=== PATIENT | female | born 1960 | race Two or more races ===

== ENCOUNTER 2018-04-11 09:14 | Emergency (ER) | payer OTHER ==
--- NOTE | 2018-04-11 10:33 | ER Document Report ---
ED General - General Chief Complaint: Abnormal Lab Results Stated Complaint: ABNORMAL LAB RESULTS Time Seen by Provider: 04/11/18 10:07 Notes: This is a 57-year-old pleasant female who presents emergency department request of her certified hyperbaric technician for low H&H. Denies any blood loss. History of chronic anemia which she thinks is due to pernicious anemia. Denies any chest pain. Denies any bright red blood in the stool or dark tarry colored stools. No recent hematemesis but did state that she vomited a couple weeks ago and it looked like there was some blood in it. Denies being a heavy alcohol user. Denies any other symptoms at this time. Has not take daily iron. [email or web address] voice dictation system was used in the transcribing of this medical document. There may be contextual errors in the risk control manager which are not actual representations of the patient's history of present illness, physical exam or medical treatment and decision making plans. TRAVEL OUTSIDE OF THE [place] IN LAST 30 DAYS: No - Related Data Allergies/Adverse Reactions: No Known Allergies Allergy (Verified 04/11/18 11:40) Past Medical History - General Information source: Patient - Social History Smoking Status: Never Smoker Frequency of alcohol use: None Drug Abuse: None Lives with: Family Family History: None Neurological Medical History: Reports: Hx Migraine Past Surgical History: Reports: Hx Section - x1 - Immunizations Hx Diphtheria, Pertussis, Tetanus Vaccination: Yes Review of Systems - Review of Systems Constitutional: No symptoms reported EENT: No symptoms reported Cardiovascular: No symptoms reported Respiratory: No symptoms reported Gastrointestinal: No symptoms reported Genitourinary: No symptoms reported Female Genitourinary: No symptoms reported Musculoskeletal: No symptoms reported Skin: No symptoms reported Hematologic/Lymphatic: No symptoms reported Neurological/Psychological: No symptoms reported Physical Exam - Vital signs Vitals: Temp Pulse Resp BP Pulse Ox 99.2 F 79 12 145/67 H 100 04/11/18 09:20 04/11/18 09:20 04/11/18 09:20 04/11/18 09:20 04/11/18 09:20 Interpretation: Normal - General General appearance: Appears well, Alert - HEENT Head: Normocephalic, Atraumatic Eyes: Normal Pupils: PERRL - Respiratory Respiratory status: No respiratory distress Chest status: Nontender Breath sounds: Normal Chest palpation: Normal - Cardiovascular Rhythm: Regular Heart sounds: Normal auscultation Murmur: No - Abdominal Inspection: Normal Distension: No distension Bowel sounds: Normal Tenderness: Nontender Organomegaly: No organomegaly - Rectal Stool: Heme negative Hemorrhoids: None - Back Back: Normal, Nontender - Extremities General upper extremity: Normal inspection, Nontender, Normal color, Normal ROM , Normal temperature General lower extremity: Normal inspection, Nontender, Normal color, Normal ROM , Normal temperature, Normal weight bearing. No: Jose Angel's sign - Neurological Neuro grossly intact: Yes Cognition: Normal Orientation: AAOx4 [place] Coma Scale Eye Opening: Spontaneous [place] Coma Scale Verbal: Oriented [place] Coma Scale Motor: Obeys Commands [place] Coma Scale Total: 15 Speech: Normal Motor strength normal: LUE, RUE, LLE, RLE Sensory: Normal - Psychological Associated symptoms: Normal affect, Normal mood - Skin Skin Temperature: Warm Skin Moisture: Dry Skin Color: Pale Course - Re-evaluation Re-evalutation: 04/11/18 14:33 Laboratory 04/11/18 04/11/18 04/11/18 10:16 10:16 10:16 WBC 3.4 L RBC 1.47 L Hgb 5.7 L Hct 16.2 L MCV 110 H MCH 39.0 H MCHC 35.4 RDW Plt Count 125 L Seg Neutrophils % 45.5 Lymphocytes % 45.3 H Monocytes % 6.7 Eosinophils % 2.2 Basophils % 0.3 Absolute Neutrophils 1.6 L Absolute Lymphocytes 1.5 Absolute Monocytes 0.2 Absolute Eosinophils 0.1 Absolute Basophils 0.0 Platelet Comment DECREASED Polychromasia SLIGHT Poikilocytosis 2+ Anisocytosis 4+ Macrocytosis 2+ Tear Drop Cells 2+ Schistocytes SLIGHT Retic Count (auto) Absolute Retic Sodium 144.5 Potassium 3.2 L Chloride 104 Carbon Dioxide 30 Anion Gap 11 BUN 11 Creatinine 0.58 Est GFR ( Amer) > 60 Est GFR (Non-Af Amer) > 60 Glucose 96 Calcium 8.9 Iron TIBC % Saturation Ferritin Total Bilirubin 1.3 Direct Bilirubin 0.7 H Neonat Total Bilirubin Not Reportable Neonat Direct Bilirubin Not Reportable Neonat Indirect Bili Not Reportable AST 175 H ALT 70 H Alkaline Phosphatase 48 Total Protein 7.3 Albumin 4.3 Vitamin B12 Folate Stool Occult Blood Blood Type O POSITIVE Antibody Screen NEGATIVE Crossmatch See Detail 04/11/18 04/11/1804/11/18 10:16 10:16 11:15 WBC RBC Hgb Hct MCV MCH MCHC RDW Plt Count Seg Neutrophils % Lymphocytes % Monocytes % Eosinophils % Basophils % Absolute Neutrophils Absolute Lymphocytes Absolute Monocytes Absolute Eosinophils Absolute Basophils Platelet Comment Polychromasia Poikilocytosis Anisocytosis Macrocytosis Tear Drop Cells Schistocytes Retic Count (auto) 1.16 Absolute Retic 0.017 L Sodium Potassium Chloride Carbon Dioxide Anion Gap BUN Creatinine Est GFR ( Amer) Est GFR (Non-Af Amer) Glucose Calcium Iron Cancelled TIBC Cancelled % Saturation Cancelled Ferritin Cancelled Total Bilirubin Direct Bilirubin Neonat Total Bilirubin Neonat Direct Bilirubin Neonat Indirect Bili AST ALT Alkaline Phosphatase Total Protein Albumin Vitamin B12 Cancelled Folate Cancelled Stool Occult Blood NEGATIVE Blood Type Antibody Screen Crossmatch Hemoccult negative. Hemoglobin is significantly low. Will transfuse at this time. MCV is slightly elevated likely due to pernicious anemia. Will give a shot of B12, thiamine and folate, transfuse with 2 units of PRBCs and DC. Patient does have hematology follow-up. Attempted to get patient seen at transfusion center for transfusion however they were going to be closing soon and did not feel comfortable starting her transfusion there. I do not feel patient needs to be admitted for this so we will keep in the emergency department extended period of time while she gets transfusion and then DC from here - Vital Signs Vital signs: Temp Pulse Resp BP Pulse Ox 98.1 F 79 14 136/74 H 100 04/11/18 14:00 04/11/18 09:20 04/11/18 14:04 04/11/18 14:04 04/11/18 13:34 - Laboratory Result Diagrams: 04/11/18 10:16 04/11/18 10:16 Laboratory results interpreted by me: 04/11/18 04/11/18 04/11/18 10:16 10:16 10:16 WBC 3.4 L RBC 1.47 L Hgb 5.7 L Hct 16.2 L MCV 110 H MCH 39.0 H Plt Count 125 L Lymphocytes % 45.3 H Absolute Neutrophils 1.6 L Absolute Retic Potassium 3.2 L Direct Bilirubin 0.7 H AST 175 H ALT 70 H Crossmatch See Detail 04/11/18 10:16 WBC RBC Hgb Hct MCV MCH Plt Count Lymphocytes % Absolute Neutrophils Absolute Retic 0.017 L Potassium Direct Bilirubin AST ALT Crossmatch Discharge - Discharge Clinical Impression: Pernicious anemia Condition: Good Disposition: HOME, SELF-CARE Instructions: Anemia ([facility]) Additional Instructions: It is very important that you follow-up with your certified hyperbaric technician as your blood counts were extremely low today and required blood transfusion. If you begin to develop any chest pain, shortness of breath, swelling or other issues please return Referrals: RAIN DANIELS MD [Primary Care Provider] - Follow up as needed HEATHER COLLADO MD [ACTIVE STAFF] - Follow up in 1 week
[2018-04-11 10:56] LABS: ABSOLUTE EOSINOPHILS # (AUTO) 0.1 10^3/uL (0.0-0.6); ABSOLUTE LYMPHOCYTES (AUTO) 1.5 10^3/uL (0.5-4.7); ABSOLUTE MONOCYTES (AUTO) 0.2 10^3/uL (0.1-1.4); ABSOLUTE NEUT (AUTO) 1.6 10^3/uL (1.7-8.2); BASOPHILS % (AUTO) 0.3 % (0-2); EOSINOPHILS % (AUTO) 2.2 % (0-6); HEMATOCRIT 16.2 % (36.0-47.0); LYMPHOCYTES % (AUTO) 45.3 % (13-45); MEAN CORPUSCULAR HGB CONC 35.4 g/dL (32.0-36.0); MEAN CORPUSCULAR VOLUME 110 fl (80-97); MONOCYTES % (AUTO) 6.7 % (3-13); PLATELET COUNT 125 10^3/uL (150-450); RED BLOOD COUNT 1.47 10^6/uL (3.72-5.28); SEGMENTED NEUTROPHILS % (AUTO) 45.5 % (42-78); TOTAL CELLS COUNTED % (AUTO) 100 %; WHITE BLOOD COUNT 3.4 10^3/uL (4.0-10.5)
[2018-04-11 11:06] LABS: ALANINE AMINOTRANSFERASE 70 U/L (9-52); ALBUMIN 4.3 g/dL (3.5-5.0); ALKALINE PHOSPHATASE 48 U/L (38-126); ANION GAP 11 (5-19); ASPARTATE AMINO TRANSFERASE 175 U/L (14-36); BILIRUBIN,DIRECT 0.7 mg/dL (0.0-0.4); BILIRUBIN,TOTAL 1.3 mg/dL (0.2-1.3); BLOOD UREA NITROGEN 11 mg/dL (7-20); CALCIUM 8.9 mg/dL (8.4-10.2); CARBON DIOXIDE 30 mmol/L (22-30); CHLORIDE 104 mmol/L (98-107); GLUCOSE 96 mg/dL (75-110); POTASSIUM 3.2 mmol/L (3.6-5.0); SODIUM 144.5 mmol/L (137-145); TOTAL PROTEIN 7.3 g/dL (6.3-8.2)
[2018-04-11 11:34] LABS: HEMOGLOBIN 5.7 g/dL (12.0-15.5)
[2018-04-11 11:38] LABS: ANISOCYTOSIS 4+; POIKILOCYTOSIS 2+
[2018-04-11 11:39] LABS: PLATELET COMMENT DECREASED; POLYCHROMASIA SLIGHT; SCHISTOCYTES SLIGHT; TEAR DROP CELLS 2+
[2018-04-11] MEDS ORDERED: NORMAL SALINE 250 ML IV PRN (11:41)
[2018-04-11 12:00] LABS: ABSOLUTE RETICS # 0.017 10^6/uL (0.028-0.122); RETICULOCYTE COUNT (AUTO) 1.16 % (0.66-2.85)
[2018-04-11] MEDS ORDERED: CYANOCOBALAMIN (VITAMIN B-12) INJ 1000 MCG/1 ML VIAL IM ONE (13:20)
[2018-04-11] MEDS ORDERED: THIAMINE HCL 100 MG, FOLIC ACID 1 MG in NORMAL SALINE 250 ML IV SCH (13:30)
[2018-04-11] MEDS ORDERED: THIAMINE HCL 100 MG, FOLIC ACID 1 MG in NORMAL SALINE 250 ML IV ONE (15:00)
[2018-04-11 15:33] LABS: FOLATE 3.83 ng/mL (>2.76)
[2018-04-11 20:08] VITALS: BP 156/71
[2018-04-12] MEDS ORDERED: THIAMINE HCL 100 MG, FOLIC ACID 1 MG in NORMAL SALINE 250 ML IV SCH (10:00)
== END 2018-04-11 20:17 | disposition home or self-care (01) ==
LOC: ER 09:14
DX: D51.0 Vitamin B12 deficiency anemia due to intrinsic factor deficiency (principal)
CPT/HCPCS: 99284; 96372; 96360; 96365; 86900; 86901; 36415; 36430; 86850; 82607; 82728; 82746; 83540; 83550; 85025; 82272; 85045; 80053; 86920; P9016; J3420; J3490; J3411; J7050

== ENCOUNTER 2018-10-05 09:38 | Inpatient (IN) | payer OTHER ==
--- NOTE | 2018-10-05 09:51 | ER Document Report ---
ED Medical Screen (RME) - General Chief Complaint: Abnormal Lab Results Stated Complaint: ABNORMAL LABS Time Seen by Provider: 10/05/18 09:44 Notes: Patient is a 58-year-old female with history of anemia that presents to the emergency department for chief complaint of abnormal blood work. Patient had outpatient blood work that it sounds like she had a hemoglobin of 6 according to the patient's , was told to come to the emergency department by their primary care, she has had a history of this in the past and required blood transfusions in the past as well. They believe his iron deficiency but she also gets B12 injections. No other complaints at this time, status post hysterectomy, denies melena or blood in the stool. ROS: Other than noted above, the 12 point review of systems was reviewed with the patient and were negative, all pertinent findings are included in the HPI. PHYSICAL EXAMINATION: Vital signs reviewed. GENERAL: Well-appearing, well-nourished and in no acute distress. HEAD: Atraumatic, normocephalic. EYES: Pupils equal round extraocular movements intact, conjunctiva are normal. ENT: Nares patent NECK: Normal range of motion CV: Heart regular rate and rhythm LUNGS: No respiratory distress Musculoskeletal: Normal range of motion NEUROLOGICAL: Normal speech PSYCH: Normal mood, normal affect. Skin: Pallor noted MDM: Patient seen and examined for rapid initial assessment. Vital signs reviewed. A comprehensive ED assessment and evaluation of the patient, analysis of test results and completion of the medical decision making process will be conducted by additional ED providers. *Note is created using voice recognition software and may contain spelling, syntax or grammatical errors. TRAVEL OUTSIDE OF THE [place] IN LAST 30 DAYS: No - Related Data Allergies/Adverse Reactions: No Known Allergies Allergy (Verified 04/11/18 11:40) Past Medical History - Social History Chew tobacco use (# tins/day): No Frequency of alcohol use: None Drug Abuse: None Neurological Medical History: Reports: Hx Migraine Renal/ Medical History: Denies: Hx Peritoneal Dialysis Past Surgical History: Reports: Hx Section - x1, Hx Hysterectomy - Immunizations Hx Diphtheria, Pertussis, Tetanus Vaccination: Yes Physical Exam - Vital signs Vitals: Temp Pulse Resp BP Pulse Ox 98.6 F 80 16 138/67 H 100 10/05/18 09:44 10/05/18 09:44 10/05/18 09:44 10/05/18 09:44 10/05/18 09:44 Course - Vital Signs Vital signs: Temp Pulse Resp BP Pulse Ox 98.6 F 80 16 138/67 H 100 10/05/18 09:44 10/05/18 09:44 10/05/18 09:44 10/05/18 09:44 10/05/18 09:44 Doctor's Discharge - Discharge Referrals: RAIN DANIELS MD [Primary Care Provider] - Follow up as needed
[2018-10-05 10:40] LABS: ABSOLUTE EOSINOPHILS # (AUTO) 0.1 10^3/uL (0.0-0.6); ABSOLUTE LYMPHOCYTES (AUTO) 1.7 10^3/uL (0.5-4.7); ABSOLUTE MONOCYTES (AUTO) 0.5 10^3/uL (0.1-1.4); BASOPHILS % (AUTO) 0.2 % (0-2); EOSINOPHILS % (AUTO) 2.6 % (0-6); HEMATOCRIT 18.4 % (36.0-47.0); LYMPHOCYTES % (AUTO) 39.9 % (13-45); MEAN CORPUSCULAR HEMOGLOBIN 38.4 pg (27.0-33.4); MEAN CORPUSCULAR HGB CONC 34.1 g/dL (32.0-36.0); MONOCYTES % (AUTO) 11.1 % (3-13); PLATELET COUNT 116 10^3/uL (150-450); RED BLOOD COUNT 1.64 10^6/uL (3.72-5.28); RED CELL DISTRIBUTION WIDTH 28.3 % (11.5-14.0); SEGMENTED NEUTROPHILS % (AUTO) 46.2 % (42-78); TOTAL CELLS COUNTED % (AUTO) 100 %; WHITE BLOOD COUNT 4.2 10^3/uL (4.0-10.5)
--- NOTE | 2018-10-05 10:40 | ER Document Report ---
ED General - General Chief Complaint: Abnormal Lab Results Stated Complaint: ABNORMAL LABS Time Seen by Provider: 10/05/18 09:44 Mode of Arrival: Ambulatory Information source: Patient Notes: 58-year-old female with a history of anemia presents emergency department for complaints of abnormal blood work. Patient had outpatient blood work done and was called stating that she had a low hemoglobin. She was told she had a hemoglobin of 6. She was told to go to the emergency department for evaluation and treatment. Patient states that she has a history of anemia. She is required blood transfusions in the past. The last time was in April. Patient's states that they believe this is iron deficiency and she is getting B12 injections. Patient denies any blood in her stool, melena, hematuria, hematemesis. She denies any chest pain, shortness of breath, lightheadedness. Has not been following up with oncology as directed. TRAVEL OUTSIDE OF THE [place] IN LAST 30 DAYS: No - HPI Onset: This morning Onset/Duration: Sudden Quality of pain: No pain Severity: None Pain Level: Denies Associated symptoms: None Exacerbated by: Denies Relieved by: Denies Similar symptoms previously: Yes Recently seen / treated by doctor: Yes - Related Data Allergies/Adverse Reactions: No Known Allergies Allergy (Verified 10/05/18 09:53) Past Medical History - General Information source: Patient - Social History Smoking Status: Never Smoker Chew tobacco use (# tins/day): No Frequency of alcohol use: None Drug Abuse: None Family History: None Patient has suicidal ideation: No Patient has homicidal ideation: No Neurological Medical History: Reports: Hx Migraine Renal/ Medical History: Denies: Hx Peritoneal Dialysis Past Surgical History: Reports: Hx Abdominal Surgery - gallstones removed, Hx Section - x1, Hx Hysterectomy - Immunizations Hx Diphtheria, Pertussis, Tetanus Vaccination: Yes Review of Systems - Review of Systems Constitutional: No symptoms reported EENT: No symptoms reported Cardiovascular: No symptoms reported Respiratory: No symptoms reported Gastrointestinal: No symptoms reported Genitourinary: No symptoms reported Female Genitourinary: No symptoms reported Musculoskeletal: No symptoms reported Skin: No symptoms reported Hematologic/Lymphatic: No symptoms reported Neurological/Psychological: No symptoms reported -: Yes All other systems reviewed and negative Physical Exam - Vital signs Vitals: Temp Pulse Resp BP Pulse Ox 98.6 F 80 16 138/67 H 100 10/05/18 09:44 10/05/18 09:44 10/05/18 09:44 10/05/18 09:44 10/05/18 09:44 - Notes Notes: PHYSICAL EXAMINATION: GENERAL: Well-appearing, well-nourished and in no acute distress. HEAD: Atraumatic, normocephalic. EYES: Pupils equal round and reactive to light, extraocular movements intact, conjunctiva are normal. ENT: Nares patent, oropharynx clear without exudates. Moist mucous membranes. NECK: Normal range of motion, supple without lymphadenopathy LUNGS: Breath sounds clear to auscultation bilaterally and equal. No wheezes rales or rhonchi. HEART: Regular rate and rhythm without murmurs ABDOMEN: Soft, nontender, nondistended abdomen. No guarding, no rebound. No masses appreciated. Female : deferred Musculoskeletal: Normal range of motion, no pitting or edema. No cyanosis. NEUROLOGICAL: Cranial nerves grossly intact. Normal speech, normal gait. Normal sensory, motor exams PSYCH: Normal mood, normal affect. SKIN: Warm, Dry, normal turgor, no rashes or lesions noted. Course - Re-evaluation Re-evalutation: 10/05/18 12:21 Labs obtained. Patient's hemoglobin is 6.3. Iron studies were done. Findings are consistent with anemia of chronic disease. Patient states that she has not followed up with a wafer fabricator. She has been noncompliant outpatient. I contacted . He will see the patient in the hospital. Is agreeable with transfusing 2 units of PRBCs. I spoke with the hospitalist, Dr. Franco. He 's agreeable with admitting the patinet. The Patient currently stable without any complaints. - Vital Signs Vital signs: Temp Pulse Resp BP Pulse Ox 98.6 F 80 16 138/67 H 100 10/05/18 09:44 10/05/18 09:44 10/05/18 09:44 10/05/18 09:44 10/05/18 09:44 - Laboratory Result Diagrams: 10/05/18 10:01 10/05/18 10:01 Laboratory results interpreted by me: 10/05/18 10/05/18 10/05/18 10:01 10:01 10:01 RBC 1.64 L Hgb 6.3 L Hct 18.4 L MCV 112 H MCH 38.4 H RDW 28.3 H Plt Count 116 L Retic Count (auto) 3.14 H Sodium Carbon Dioxide Iron 25.7 L TIBC 241 L Direct Bilirubin AST Crossmatch 10/05/18 10/05/18 10:01 10:01 RBC Hgb Hct MCV MCH RDW Plt Count Retic Count (auto) Sodium 146.9 H Carbon Dioxide 31 H Iron TIBC Direct Bilirubin 0.6 H AST 90 H Crossmatch See Detail Discharge - Discharge Clinical Impression: Anemia of chronic disease Condition: Good Disposition: ADMITTED OBSERVATION Admitting Provider: Hospitalist Unit Admitted: Telemetry Referrals: RAIN DANIELS MD [PEDIATRICS] - Follow up as needed
[2018-10-05 10:46] LABS: ABSOLUTE RETICS # 0.052 10^6/uL (0.028-0.122); RETICULOCYTE COUNT (AUTO) 3.14 % (0.66-2.85)
[2018-10-05 10:47] LABS: ALANINE AMINOTRANSFERASE 52 U/L (9-52); ALBUMIN 4.3 g/dL (3.5-5.0); ALKALINE PHOSPHATASE 59 U/L (38-126); ANION GAP 11 (5-19); ASPARTATE AMINO TRANSFERASE 90 U/L (14-36); BILIRUBIN,DIRECT 0.6 mg/dL (0.0-0.4); BLOOD UREA NITROGEN 8 mg/dL (7-20); CALCIUM 8.8 mg/dL (8.4-10.2); CARBON DIOXIDE 31 mmol/L (22-30); CHLORIDE 105 mmol/L (98-107); GLUCOSE 98 mg/dL (75-110); IRON(TIBC) 25.7 ug/dL (37-170); SODIUM 146.9 mmol/L (137-145)
[2018-10-05 10:50] LABS: HEMOGLOBIN 6.3 g/dL (12.0-15.5)
[2018-10-05 10:51] LABS: MEAN CORPUSCULAR VOLUME 112 fl (80-97)
[2018-10-05 11:00] LABS: ANISOCYTOSIS 4+; OVALOCYTES SLIGHT; PLATELET COMMENT DECREASED; POIKILOCYTOSIS 1+; POLYCHROMASIA SLIGHT; TEAR DROP CELLS 1+; TOXIC GRANULATION 1+
[2018-10-05] MEDS ORDERED: NORMAL SALINE 250 ML IV PRN ×3 (11:10→13:28)
[2018-10-05] MEDS ORDERED: ACETAMINOPHEN 325 MG TABLET PO PRN (13:42)
--- NOTE | 2018-10-05 13:42 | PDOC H&P ---
History of Present Illness Admission Date/PCP: 10/05/18 12:31 Patient complains of: Shortness of breath/tiredness History of Present Illness: NENO JAVED is a 58 year old female With history of chronic anemia came to the emergency room after referred by the primary care physician. According to the patient she went to see the PCP on that was 3 days ago with complaints of increasing weakness and tiredness and hemoglobin was checked it was 6 and she got a call from the primary care physician today to come to the emergency room for further evaluation. Patient said she was here in the hospital 6 months ago with similar problem. According to her ex extensive workup was done and a cause for the anemia is unknown. She denies any black colored stools denies any blood in the urine denies any cough or hemoptysis. Has any epigastric tenderness or pain. Is any eating ice chips or gautam R.. Past Medical History Neurological Medical History: Reports: Migraine Hematology: Reports: Anemia Past Surgical History Past Surgical History: Reports: Section - x1, Hysterectomy Social History Smoking Status: Never Smoker Frequency of Alcohol Use: None Hx Recreational Drug Use: No Hx Prescription Drug Abuse: No Family History Family History: None Parental Family History Reviewed: Yes Children Family History Reviewed: Yes Sibling(s) Family History Reviewed.: Yes Medication/Allergy Home Medications: No Home Medications 10/05/18 Allergies/Adverse Reactions: No Known Allergies Allergy (Verified 10/05/18 09:53) Review of Systems Constitutional: PRESENT: fatigue, weakness. ABSENT: fever(s) Eyes: ABSENT: visual disturbances Ears: ABSENT: hearing changes Nose, Mouth, and Throat: ABSENT: headache(s), sore throat Cardiovascular: ABSENT: dyspnea on exertion, palpitations Respiratory: ABSENT: dyspnea Gastrointestinal: ABSENT: heartburn, hematemesis, melena, nausea, vomiting Genitourinary: ABSENT: hematuria Neurological: ABSENT: abnormal gait, abnormal speech, confusion, dizziness, focal weakness, syncope Psychiatric: ABSENT: anxiety, depression, homidical ideation, suicidal ideation Endocrine: ABSENT: cold intolerance Hematologic/Lymphatic: ABSENT: easy bleeding, easy bruising Physical Exam Vital Signs: Temp Pulse Resp BP Pulse Ox 98.6 F 80 18 141/72 H 95 10/05/18 09:44 10/05/18 09:44 10/05/18 12:01 10/05/18 12:01 10/05/18 12:01 General appearance: PRESENT: no acute distress Head exam: PRESENT: atraumatic Eye exam: PRESENT: PERRLA Mouth exam: PRESENT: moist Respiratory exam: PRESENT: clear to auscultation dee. ABSENT: rales, rhonchi, wheezes Cardiovascular exam: PRESENT: RRR. ABSENT: diastolic murmur, rubs, systolic murmur GI/Abdominal exam: PRESENT: normal bowel sounds, soft. ABSENT: tenderness Neurological exam: PRESENT: alert, awake, oriented to person, oriented to place , oriented to time, oriented to situation, CN II-XII grossly intact. ABSENT: motor sensory deficit Assessment & Plan - Diagnosis (1) Anemia of chronic disease Is this a current diagnosis for this admission?: Yes Plan: 10/05/2018 patient has history of anemia of chronic disease she came in with hemoglobin of 6.3 type and crossmatch was done in the ER we are going to transfuse 2 units of blood transfusion. Requested oncology consult. Occult blood for stool was -1 time requested for tomorrow on daily basis. Going to check a posttransfusion CBC. I am going to put put her on iron supplementation. TIBC is 241 iron saturation 11 ferritin is 204 iron level is 25.7. Patient denies any craving for ice chips are clear. (2) Weakness Is this a current diagnosis for this admission?: Yes Plan: 10/05/2018 came with complaints of worsening of the weakness/tiredness it may be most likely secondary to severe anemia with hemoglobin of 6.2. Bili was that she got blood transfusion on the symptoms may improve. - Time Time Spent: 30 to 50 Minutes Critical Time spent with patient: 15-24 minutes Medications reviewed and adjusted accordingly: Yes Anticipated discharge: Home
[2018-10-05] MEDS ORDERED: ENOXAPARIN SODIUM INJ 30 MG/0.3 ML DISP.SYRIN SUBCUT ONE (16:00)
[2018-10-05] MEDS: FAMOTIDINE 20 MG TABLET PO SCH (22:10)
--- NOTE | 2018-10-05 22:30 | EKG REPORT ---
SEVERITY:- NORMAL ECG - SINUS RHYTHM : Confirmed by: Maicol Wilcox MD 05-Oct-2018 22:29:19
[2018-10-06 00:40] LABS: ABSOLUTE EOSINOPHILS # (AUTO) 0.2 10^3/uL (0.0-0.6); ABSOLUTE LYMPHOCYTES (AUTO) 2.4 10^3/uL (0.5-4.7); ABSOLUTE MONOCYTES (AUTO) 0.6 10^3/uL (0.1-1.4); ABSOLUTE NEUT (AUTO) 2.7 10^3/uL (1.7-8.2); BASOPHILS % (AUTO) 0.3 % (0-2); HEMATOCRIT 26.2 % (36.0-47.0); LYMPHOCYTES % (AUTO) 40.5 % (13-45); MEAN CORPUSCULAR HEMOGLOBIN 35.8 pg (27.0-33.4); MEAN CORPUSCULAR HGB CONC 34.9 g/dL (32.0-36.0); MONOCYTES % (AUTO) 10.8 % (3-13); PLATELET COUNT 105 10^3/uL (150-450); RED BLOOD COUNT 2.55 10^6/uL (3.72-5.28); RED CELL DISTRIBUTION WIDTH 24.7 % (11.5-14.0); SEGMENTED NEUTROPHILS % (AUTO) 45.4 % (42-78); TOTAL CELLS COUNTED % (AUTO) 100 %; WHITE BLOOD COUNT 5.8 10^3/uL (4.0-10.5)
[2018-10-06 00:51] LABS: HEMOGLOBIN 9.1 g/dL (12.0-15.5); MEAN CORPUSCULAR VOLUME 103 fl (80-97)
[2018-10-06 00:59] LABS: TOXIC GRANULATION 1+
[2018-10-06 01:00] LABS: ANISOCYTOSIS 3+; BURR CELLS SLIGHT; OVALOCYTES 2+; POIKILOCYTOSIS 3+; POLYCHROMASIA 1+; SCHISTOCYTES 1+; TEAR DROP CELLS 2+
[2018-10-06 01:01] LABS: PLATELET COMMENT ADEQUATE
[2018-10-06 05:18] LABS: ABSOLUTE EOSINOPHILS # (AUTO) 0.2 10^3/uL (0.0-0.6); ABSOLUTE MONOCYTES (AUTO) 0.6 10^3/uL (0.1-1.4); ABSOLUTE NEUT (AUTO) 2.8 10^3/uL (1.7-8.2); BASOPHILS % (AUTO) 0.2 % (0-2); EOSINOPHILS % (AUTO) 3.6 % (0-6); HEMATOCRIT 26.9 % (36.0-47.0); HEMOGLOBIN 9.3 g/dL (12.0-15.5); LYMPHOCYTES % (AUTO) 35.9 % (13-45); MEAN CORPUSCULAR HEMOGLOBIN 35.5 pg (27.0-33.4); MEAN CORPUSCULAR HGB CONC 34.6 g/dL (32.0-36.0); MEAN CORPUSCULAR VOLUME 103 fl (80-97); MONOCYTES % (AUTO) 11.4 % (3-13); PLATELET COUNT 105 10^3/uL (150-450); RED BLOOD COUNT 2.63 10^6/uL (3.72-5.28); SEGMENTED NEUTROPHILS % (AUTO) 48.9 % (42-78); TOTAL CELLS COUNTED % (AUTO) 100 %; WHITE BLOOD COUNT 5.7 10^3/uL (4.0-10.5)
[2018-10-06 05:34] LABS: ANION GAP 10 (5-19); BLOOD UREA NITROGEN 8 mg/dL (7-20); CALCIUM 8.5 mg/dL (8.4-10.2); CARBON DIOXIDE 29 mmol/L (22-30); CHLORIDE 106 mmol/L (98-107); GLUCOSE 95 mg/dL (75-110); POTASSIUM 3.6 mmol/L (3.6-5.0); SODIUM 145.3 mmol/L (137-145); TRIGLYCERIDES 148 mg/dL (<150)
[2018-10-06 05:45] LABS: DIRECT LDL 90 mg/dL (<100)
[2018-10-06 05:58] LABS: ANISOCYTOSIS 3+; HELMET CELLS 1+; OVALOCYTES 2+; PLATELET COMMENT ADEQUATE; POIKILOCYTOSIS 3+; TEAR DROP CELLS 2+; TOXIC GRANULATION SLIGHT
--- NOTE | 2018-10-06 08:25 | PDOC CONSULTATION ---
Consultation Consult Date: 10/06/18 Attending physician:: SMITHA NGUYỄN Consult reason:: Anemia History of Present Illness Admission Date/PCP: 10/05/18 13:16 Patient complains of: Weakness, fatigue History of Present Illness: NENO JAVED is a 58 year old female with known history of recurrent anemia. I reviewed her labs through [facility] going back to 2010. Back in 2010 she came in with a hemoglobin of 6, MCV was 105, and platelet count was always around 100. Previously she did have a diagnosis of pernicious anemia with a B12 level of less than 100, but she never was compliant with B12 supplementation. And she never did follow-up with hematology. She has had recurrent admissions for transfusions over the last 7 years, and probably is received transfusions 8-10 times. The cause of her anemia has never fully been elucidated. Here, her platelet count still is around 100, hemoglobin was 6, MCV was 105, B12 level was 400. Ferritin was greater than 200. She never has had a bone marrow biopsy. She feels much better after 2 units of packed red blood cells today. Hemoglobin is improved to 9. Past Medical History Neurological Medical History: Reports: Migraine Hematology: Reports: Anemia Past Surgical History Past Surgical History: Reports: Section - x1, Hysterectomy Social History Information Source: Patient Smoking Status: Never Smoker Frequency of Alcohol Use: None Hx Recreational Drug Use: No Hx Prescription Drug Abuse: No - Advance Directive Resuscitation Status: Full Code Family History Family History: None Parental Family History Reviewed: Yes Children Family History Reviewed: Yes Sibling(s) Family History Reviewed.: Yes Medication/Allergy Home Medications: No Home Medications 10/05/18 Allergies/Adverse Reactions: No Known Allergies Allergy (Verified 10/05/18 09:53) Review of Systems Constitutional: ABSENT: chills, fever(s), headache(s), weight gain, weight loss Eyes: ABSENT: visual disturbances Ears: ABSENT: hearing changes Cardiovascular: ABSENT: chest pain, dyspnea on exertion, edema, orthropnea, palpitations Respiratory: ABSENT: cough, hemoptysis Gastrointestinal: ABSENT: abdominal pain, constipation, diarrhea, hematemesis, hematochezia, nausea, vomiting Genitourinary: ABSENT: dysuria, hematuria Musculoskeletal: ABSENT: joint swelling Integumentary: ABSENT: rash, wounds Neurological: ABSENT: abnormal gait, abnormal speech, confusion, dizziness, focal weakness, syncope Psychiatric: ABSENT: anxiety, depression, homidical ideation, suicidal ideation Endocrine: ABSENT: cold intolerance, heat intolerance, polydipsia, polyuria Hematologic/Lymphatic: ABSENT: easy bleeding, easy bruising Physical Exam Vital Signs: Temp Pulse Resp BP Pulse Ox 99.0 F 89 16 120/84 97 10/06/18 03:35 10/06/18 03:35 10/06/18 03:35 10/06/18 03:35 10/06/18 03:35 Intake & Output 10/05/18 10/06/18 10/07/18 06:59 06:59 06:59 Intake Total 887 Balance 887 Weight 61.9 kg General appearance: PRESENT: no acute distress, well-developed, well-nourished Head exam: PRESENT: atraumatic, normocephalic Eye exam: PRESENT: conjunctiva pink, EOMI, PERRLA. ABSENT: scleral icterus Ear exam: PRESENT: normal external ear exam Mouth exam: PRESENT: moist, tongue midline Neck exam: ABSENT: carotid bruit, JVD, lymphadenopathy, thyromegaly Respiratory exam: PRESENT: clear to auscultation dee. ABSENT: rales, rhonchi, wheezes Cardiovascular exam: PRESENT: RRR. ABSENT: diastolic murmur, rubs, systolic murmur Pulses: PRESENT: normal dorsalis pedis pul Vascular exam: PRESENT: normal capillary refill GI/Abdominal exam: PRESENT: normal bowel sounds, soft. ABSENT: distended, guarding, mass, organolmegaly, rebound, tenderness Rectal exam: PRESENT: deferred Extremities exam: PRESENT: full ROM. ABSENT: calf tenderness, clubbing, pedal edema Neurological exam: PRESENT: alert, awake, oriented to person, oriented to place , oriented to time, oriented to situation, CN II-XII grossly intact. ABSENT: motor sensory deficit Psychiatric exam: PRESENT: appropriate affect, normal mood. ABSENT: homicidal ideation, suicidal ideation Skin exam: PRESENT: dry, intact, warm. ABSENT: cyanosis, rash Results Laboratory Results: 10/06/18 04:26 10/06/18 04:26 10/06/18 10/06/18 10/06/18 00:20 04:26 04:26 WBC 5.8 5.7 RBC 2.55 L 2.63 L Hgb 9.1 L D 9.3 L Hct 26.2 L 26.9 L MCV 103 H D 103 H MCH 35.8 H 35.5 H MCHC 34.9 34.6 RDW 24.7 H 25.0 H Plt Count 105 L 105 L Seg Neutrophils % 45.4 48.9 Lymphocytes % 40.5 35.9 Monocytes % 10.8 11.4 Eosinophils % 3.0 3.6 Basophils % 0.3 0.2 Absolute Neutrophils 2.7 2.8 Absolute Lymphocytes 2.4 2.0 Absolute Monocytes 0.6 0.6 Absolute Eosinophils 0.2 0.2 Absolute Basophils 0.0 0.0 Sodium 145.3 H Potassium 3.6 Chloride 106 Carbon Dioxide 29 Anion Gap 10 BUN 8 Creatinine 0.58 Est GFR ( Amer) > 60 Est GFR (Non-Af Amer) > 60 Glucose 95 Calcium 8.5 Magnesium 2.0 Triglycerides 148 Cholesterol 144.50 LDL Cholesterol Direct 90 VLDL Cholesterol 30.0 HDL Cholesterol 27 L TSH 10/06/18 04:26 WBC RBC Hgb Hct MCV MCH MCHC RDW Plt Count Seg Neutrophils % Lymphocytes % Monocytes % Eosinophils % Basophils % Absolute Neutrophils Absolute Lymphocytes Absolute Monocytes Absolute Eosinophils Absolute Basophils Sodium Potassium Chloride Carbon Dioxide Anion Gap BUN Creatinine Est GFR ( Amer) Est GFR (Non-Af Amer) Glucose Calcium Magnesium Triglycerides Cholesterol LDL Cholesterol Direct VLDL Cholesterol HDL Cholesterol TSH 0.87 Assessment & Plan - Diagnosis (1) Anemia of chronic disease Is this a current diagnosis for this admission?: Yes Plan: At this point most likely anemia of chronic disease but do not know what chronic disease she truly has. B12 and iron levels are normal so supplementation will not help right now. I will need to see her as an outpatient and do further workup, plan for bone marrow biopsy. We talked about doing that inpatient, but she really wants to go home and she feels strong enough to be able to do so, I believe would be safe enough to let her go home and let us do the workup further as an outpatient. She is going to be seeing the next week but she will need to call my office to make an appointment tomorrow. Previously she was noncompliant with that, but she is now sufficiently worried about her condition that I believe she will follow-up. i' ve asked nursing to reiterate to her family of the importance of follow-up. Of note, although MDS would be a very distinct possibility looking at her labs, she had the same picture in 2010, and given the severity of her anemia she would have been a high risk MDS. Most patients with high risk MDS would only live 1-2 years without further therapy. So this would not fit that picture closely. In addition, a diagnosis such as multiple myeloma with severe anemia also would have a similar prognosis without treatment. Regardless, we will need to work all these possibilities up as an outpatient. She would benefit from a bone marrow biopsy which I will set up as an outpatient. - Time Time Spent: Greater than 70 Minutes
[2018-10-06] MEDS: FAMOTIDINE 20 MG TABLET PO SCH (09:29)
[2018-10-06] MEDS ORDERED: ENOXAPARIN SODIUM INJ 30 MG/0.3 ML DISP.SYRIN SUBCUT SCH ×2 (10:00)
--- NOTE | 2018-10-06 13:51 | PDOC DISCHARGE SUMMARY ---
General - Admit/Disc Date/PCP Admission Date/Primary Care Provider: 10/05/18 13:16 Discharge Date: 10/06/18 - Discharge Diagnosis (1) Anemia of chronic disease Is this a current diagnosis for this admission?: Yes Summary: 10/05/2018 patient has history of anemia of chronic disease she came in with hemoglobin of 6.3 type and crossmatch was done in the ER we are going to transfuse 2 units of blood transfusion. Requested oncology consult. Occult blood for stool was -1 time requested for tomorrow on daily basis. Going to check a posttransfusion CBC. I am going to put put her on iron supplementation. TIBC is 241 iron saturation 11 ferritin is 204 iron level is 25.7. Patient denies any craving for ice chips are clear. 10/06/2018 was admitted with hemoglobin of 6.3. Cause of anemia is unknown. The oncology consult was done. She is going to get a extensive workup as an outpatient. She got 2 units of blood transfusion yesterday. Hemoglobin is 9.3 today. Patient is cleared by oncology to go home. Advised the patient follow- up with Dr. RAKESH GOULD (2) Weakness Is this a current diagnosis for this admission?: Yes Summary: 10/05/2018 came with complaints of worsening of the weakness/tiredness it may be most likely secondary to severe anemia with hemoglobin of 6.2. Bili was that she got blood transfusion on the symptoms may improve. 10/06/2000 2:18 units of blood transfusion patient's weakness is resolved patient is feeling much much better. Patient is willing to go home today. - Additional Information Resuscitation Status: Full Code Discharge Diet: Regular Discharge Activity: Activity As Tolerated Home Medications: No Home Medications 10/05/18 History of Present Illness History of Present Illness: NENO JAVED is a 58 year old female With history of chronic anemia came to the emergency room after referred by the primary care physician. According to the patient she went to see the PCP on that was 3 days ago with complaints of increasing weakness and tiredness and hemoglobin was checked it was 6 and she got a call from the primary care physician today to come to the emergency room for further evaluation. Patient said she was here in the hospital 6 months ago with similar problem. According to her ex extensive workup was done and a cause for the anemia is unknown. She denies any black colored stools denies any blood in the urine denies any cough or hemoptysis. Has any epigastric tenderness or pain. Is any eating ice chips or gautam R.. Physical Exam Vital Signs: Temp Pulse Resp BP Pulse Ox 98.5 F 79 16 137/79 H 99 10/06/18 11:50 10/06/18 11:50 10/06/18 11:50 10/06/18 11:50 10/06/18 11:50 Intake & Output 10/05/18 10/06/18 10/07/18 06:59 06:59 06:59 Intake Total 887 Balance 887 Weight 61.9 kg General appearance: PRESENT: no acute distress Eye exam: PRESENT: PERRLA Mouth exam: PRESENT: moist Neck exam: ABSENT: carotid bruit Respiratory exam: PRESENT: clear to auscultation dee. ABSENT: rales, rhonchi, wheezes GI/Abdominal exam: PRESENT: normal bowel sounds, soft. ABSENT: distended, guarding, mass, organolmegaly, rebound, tenderness Neurological exam: PRESENT: alert, awake, oriented to person, oriented to place , oriented to time, oriented to situation, CN II-XII grossly intact. ABSENT: motor sensory deficit Psychiatric exam: PRESENT: appropriate affect, normal mood. ABSENT: homicidal ideation, suicidal ideation Results Laboratory Results: 10/06/18 04:26 10/06/18 04:26 10/06/18 10/06/18 10/06/18 00:20 04:26 04:26 WBC 5.8 5.7 RBC 2.55 L 2.63 L Hgb 9.1 L D 9.3 L Hct 26.2 L 26.9 L MCV 103 H D 103 H MCH 35.8 H 35.5 H MCHC 34.9 34.6 RDW 24.7 H 25.0 H Plt Count 105 L 105 L Seg Neutrophils % 45.4 48.9 Lymphocytes % 40.5 35.9 Monocytes % 10.8 11.4 Eosinophils % 3.0 3.6 Basophils % 0.3 0.2 Absolute Neutrophils 2.7 2.8 Absolute Lymphocytes 2.4 2.0 Absolute Monocytes 0.6 0.6 Absolute Eosinophils 0.2 0.2 Absolute Basophils 0.0 0.0 Sodium 145.3 H Potassium 3.6 Chloride 106 Carbon Dioxide 29 Anion Gap 10 BUN 8 Creatinine 0.58 Est GFR ( Amer) > 60 Est GFR (Non-Af Amer) > 60 Glucose 95 Calcium 8.5 Magnesium 2.0 Triglycerides 148 Cholesterol 144.50 LDL Cholesterol Direct 90 VLDL Cholesterol 30.0 HDL Cholesterol 27 L TSH 10/06/18 04:26 WBC RBC Hgb Hct MCV MCH MCHC RDW Plt Count Seg Neutrophils % Lymphocytes % Monocytes % Eosinophils % Basophils % Absolute Neutrophils Absolute Lymphocytes Absolute Monocytes Absolute Eosinophils Absolute Basophils Sodium Potassium Chloride Carbon Dioxide Anion Gap BUN Creatinine Est GFR ( Amer) Est GFR (Non-Af Amer) Glucose Calcium Magnesium Triglycerides Cholesterol LDL Cholesterol Direct VLDL Cholesterol HDL Cholesterol TSH 0.87 Qualifiers - * PATIENT BEING DISCHARGED WITH ANY OF THE FOLLOWING DIAGNOSIS: No VTE patient discharged on overlapping Therapy?: Yes
[2018-10-06 14:36] VITALS: BP 146/71
[2018-10-07 11:44] LABS: PATH REVIEW PATHOLOGIST REVIEWED
== END 2018-10-06 15:00 | disposition home or self-care (01) | DRG 948 ==
LOC: ER 09:38 → EH 12:31 → OBSVTOIN 13:16 → 4N 15:50
PROVIDERS: ADMIT Hospitalist; ATTEND Hospitalist
PROC: 30233N1 Transfusion of Nonautologous Red Blood Cells into Peripheral Vein, Percutaneous Approach (ICD-10-PCS; principal; 2018-10-05)
PROC: 3E02340 Introduction of Influenza Vaccine into Muscle, Percutaneous Approach (ICD-10-PCS; 2018-10-06)
DX: R53.1 Weakness (principal); G43.909 Migraine, unspecified, not intractable, without status migrainosus; D63.8 Anemia in other chronic diseases classified elsewhere; Z23 Encounter for immunization; Z90.710 Acquired absence of both cervix and uterus; Z91.19 Patient's noncompliance with other medical treatment and regimen
CPT/HCPCS: 36415; 36430; 80048; 80053; 80061; 82272; 82607; 82728; 82746; 83540; 83550; 83735; 84443; 85025; 85045; 86850; 86870; 86900; 86901; 86902; 86920; 86922; 90471; 90686; 93005; 93010; 99284; G0008; J3490; P9016

== ENCOUNTER 2018-10-24 13:43 | Outpatient (CLI) | payer OTHER ==
[~2018-10-24 13:43] MED LIST: CYANOCOBALAMIN (VITAMIN B-12) INJ 1000 MCG/1 ML VIAL IM PRN; FERUMOXYTOL (NON-ESRD) 510 MG/NS 100 ML IV PRN; NORMAL SALINE 250 ML IV PRN
[2018-10-24 13:53] VITALS: BP 150/77
== END 2018-10-24 14:54 | disposition home or self-care (01) ==
LOC: II 13:43 → 5TH 13:45 → II 14:54
PROVIDERS: ATTEND Internal Medicine
DX: D50.8 Other iron deficiency anemias (principal); K90.9 Intestinal malabsorption, unspecified
CPT/HCPCS: 96367; 96372; Q0138; J3420

== ENCOUNTER 2018-11-01 08:04 | Outpatient (CLI) | payer OTHER ==
[~2018-11-01 08:04] MED LIST changes: +FERUMOXYTOL 510 MG in NORMAL SALINE 100 ML IV PRN
[2018-11-01 09:12] VITALS: BP 143/68
== END 2018-11-01 09:54 | disposition home or self-care (01) ==
LOC: II 08:04 → 5TH 08:05 → II 09:54
PROVIDERS: ATTEND Internal Medicine
PROC: 3E033GC Introduction of Other Therapeutic Substance into Peripheral Vein, Percutaneous Approach (ICD-10-PCS; principal; 2018-11-01)
DX: D50.8 Other iron deficiency anemias (principal); K90.9 Intestinal malabsorption, unspecified
CPT/HCPCS: 96367; Q0138; J3420; 96365